=== PATIENT | female | born 1985 | race Caucasian/White ===

== ENCOUNTER 2017-02-01 06:43 | Emergency (ER) | payer OTHER ==
[~2017-02-01] VITALS: Ht 149.9 cm; Wt 36.1 kg
[~2017-02-01 06:43] MED LIST: BENADRYL25 MG PO; METHADONE10 MG/1 M1 PO; MOTRIN600 MG PO; PEN-VEE K,VEET500 MG PO; PREDNISONE5 M1 PO
[2017-02-01] MEDS ORDERED: MOTRIN800 MG PO (07:10)
[2017-02-01] MEDS ORDERED: AMOXICILLIN500 MG PO (07:10)
[2017-02-01 07:19] VITALS: BP 131/85
== END 2017-02-01 07:25 | disposition home or self-care (01) ==
LOC: EME 06:43
DX: K04.7 Periapical abscess without sinus (principal); F17.200 Nicotine dependence, unspecified, uncomplicated
CPT/HCPCS: 99281; 99284

== ENCOUNTER 2017-02-06 10:17 | Emergency (ER) | payer OTHER ==
[~2017-02-06] VITALS: Ht 149.9 cm; Wt 37.7 kg
[~2017-02-06 10:17] MED LIST changes: +AMOXICILLIN500 MG PO; +MOTRIN800 MG PO
[2017-02-06] MEDS ORDERED: NAPROSYN500 MG PO (11:13)
[2017-02-06 11:31] VITALS: BP 109/87
== END 2017-02-06 11:32 | disposition home or self-care (01) ==
LOC: EME 10:17
DX: S63.501A Unspecified sprain of right wrist, initial encounter (principal); W22.09XA Striking against other stationary object, initial encounter; F17.200 Nicotine dependence, unspecified, uncomplicated
CPT/HCPCS: 73110; 99281; 99283

== ENCOUNTER 2017-04-18 11:16 | Emergency (ER) | payer OTHER ==
[~2017-04-18] VITALS: Ht 149.9 cm; Wt 32.7 kg
[2017-04-18 11:16] VITALS: BP 103/58
[~2017-04-18 11:16] MED LIST changes: +NAPROSYN500 MG PO
== END 2017-04-18 11:47 | disposition left against medical advice (07) ==
LOC: EME 11:16
DX: Z53.21 Procedure and treatment not carried out due to patient leaving prior to being seen by health care provider (principal)
CPT/HCPCS: 99281; 99283

== ENCOUNTER 2017-07-28 17:05 | Emergency (ER) | payer OTHER ==
[~2017-07-28] VITALS: Ht 149.9 cm; Wt 36.3 kg
[2017-07-28 17:35] LABS: HEMATOCRIT 38.8 % (36.0-46.0); MCH 30.7 PG (29.0-34.0); MCHC 33.5 G/DL (30.0-36.0); MCV 91.7 FL (83-99); PLATELET COUNT 176 K/uL (156-360); RBC DIS.WIDTH-CV 12.2 % (11.8-14.6); RBC DIS.WIDTH-SD 41.3 % (39-53); RED BLOOD COUNT 4.23 M/uL (3.80-5.20); WHITE BLOOD COUNT 5.7 K/uL (4.1-10.2)
[2017-07-28 17:43] LABS: ALBUMIN 3.7 g/dL (3.2-4.8); CHLORIDE 102 mEq/L (99-109); POTASSIUM 3.9 mEq/L (3.7-5.4); SODIUM 137 mEq/L (136-147)
[2017-07-28 17:45] LABS: GLUCOSE 89 mg/dL (70-99); TOTAL PROTEIN 7.3 g/dL (6.4-8.3)
[2017-07-28 17:47] LABS: TOTAL BILIRUBIN 0.3 mg/dL (0.0-1.0)
[2017-07-28 17:48] LABS: SERUM ETHYL ALCOHOL < 10 mg/dL
[2017-07-28 17:49] LABS: ALKALINE PHOSPHATASE 61 IU/L (3-129); CREATININE 0.8 mg/dL (0.6-1.3); GFR ESTIMATE (CALCULATED) > 59 mL/min/
[2017-07-28 17:50] LABS: UREA NITROGEN (BUN) 13 mg/dL (9-23)
[2017-07-28 17:51] LABS: AST (GOT) 17 IU/L (2-34)
[2017-07-28 17:52] LABS: ALT (GPT) 17 IU/L (3-49)
[2017-07-28 20:17] VITALS: BP 133/93
== END 2017-07-28 20:18 | disposition home or self-care (01) ==
LOC: EME 17:05
PROVIDERS: Emergency Medicine
DX: F43.22 Adjustment disorder with anxiety (principal); F17.200 Nicotine dependence, unspecified, uncomplicated; Z04.6 Encounter for general psychiatric examination, requested by authority; Z79.891 Long term (current) use of opiate analgesic
CPT/HCPCS: 80053; 84703; 85027; 90837; 99281; 99283; G0480

== ENCOUNTER 2017-08-20 08:42 | Emergency (ER) | payer OTHER ==
[~2017-08-20] VITALS: Ht 149.9 cm; Wt 37.7 kg
[2017-08-20 09:41] LABS: APPEARANCE CLOUDY ((CLEAR)); BILIRUBIN NEGATIVE; BLOOD SMALL; GLUCOSE (STRIP) NEGATIVE; KETONES NEGATIVE; LEUKOCYTES LARGE; NITRITE POSITIVE; PROTEIN (STRIP) 100; SPECIFIC GRAVITY 1.025 (1.000-1.030)
[2017-08-20 09:47] LABS: COLOR DK YELLOW ((YELLOW))
[2017-08-20 10:05] LABS: BACTERIA 3+ /HPF; EPITHELIAL CELLS 1+ /HPF; MUCUS NONE SEEN /LPF; UCUL ADDED? YES; WHITE BLOOD CELLS 30-40 /HPF (0-5)
[2017-08-20 10:09] LABS: SOURCE SWAB
[2017-08-20 10:39] VITALS: BP 105/73
[2017-08-20] MEDS ORDERED: KEFLEX500 MG PO (11:30)
== END 2017-08-20 11:41 | disposition home or self-care (01) ==
LOC: EME 08:42
PROVIDERS: Physician Assistant
DX: N76.0 Acute vaginitis (principal); B00.9 Herpesviral infection, unspecified; N76.2 Acute vulvitis; A59.09 Other urogenital trichomoniasis; B96.20 Unspecified Escherichia coli [E. coli] as the cause of diseases classified elsewhere; F17.200 Nicotine dependence, unspecified, uncomplicated; Z79.891 Long term (current) use of opiate analgesic
CPT/HCPCS: 81003; 81025; 87077; 87086; 87186; 87210; 87491; 87591; 99281; 99284; J0696

== ENCOUNTER 2018-01-05 11:52 | Emergency (ER) | payer OTHER ==
[~2018-01-05] VITALS: Ht 149.9 cm; Wt 38.6 kg
[~2018-01-05 11:52] MED LIST changes: +KEFLEX500 MG PO
[2018-01-05] MEDS ORDERED: BACTRIM,SEPT1 TABLET PO (14:16)
[2018-01-05] MEDS ORDERED: NAPROSYN500 MG PO (14:16)
[2018-01-05] MEDS ORDERED: KEFLEX500 MG PO (14:16)
[2018-01-05 14:26] VITALS: BP 110/69
== END 2018-01-05 14:41 | disposition home or self-care (01) ==
LOC: EME 11:52
DX: L02.416 Cutaneous abscess of left lower limb (principal); Z20.818 Contact with and (suspected) exposure to other bacterial communicable diseases; Z87.898 Personal history of other specified conditions; F19.10 Other psychoactive substance abuse, uncomplicated; F17.210 Nicotine dependence, cigarettes, uncomplicated; Z79.891 Long term (current) use of opiate analgesic
CPT/HCPCS: 87070; 87075; 87077; 87147; 87186; 87205; 99281; 99284; J1885